=== PATIENT | female | born 1955 | race Caucasian/White ===

== ENCOUNTER 2017-01-12 06:18 | Day surgery (SDC) | payer OTHER ==
[~2017-01-12] VITALS: Ht 167.6 cm; Wt 75.0 kg
[~2017-01-12 06:18] MED LIST: IMITREX50 MG PO; KENALOG,ARISTOC15 G2 TP; LANTUS 3 M100 UNITS1 SC; LEVOTHYROXINE125 MCG PO; METFORMIN HCL1000 MG PO; METOPROLOL TART25 MG PO; MIRALAX255 GM PO; NITROSTAT0.3 MG SL; OMEPRAZOLE20 MG PO; VITAMIN B-12250 MCG PO; ZOLOFT25 MG PO
[2017-01-12 07:34] VITALS: BP 109/70
[2017-01-12 08:22] LABS: POINT-OF-CARE METER ID UU14174212; POINT-OF-CARE USER ID AHSRSCSLC11
[2017-01-12 10:03] LABS: POINT-OF-CARE METER ID UU13113675
[2017-01-12 10:35] VITALS: BP 109/66
[2017-01-12 11:28] VITALS: BP 126/65
[2017-01-12 12:10] VITALS: BP 113/67
== END 2017-01-12 12:25 | disposition home or self-care (01) ==
LOC: SDC 06:18
PROVIDERS: Internal Medicine
DX: H33.011 Retinal detachment with single break, right eye (principal); E11.3591 Type 2 diabetes mellitus with proliferative diabetic retinopathy without macular edema, right eye; K21.9 Gastro-esophageal reflux disease without esophagitis; E03.9 Hypothyroidism, unspecified; Z91.013 Allergy to seafood
CPT/HCPCS: 82948; J0690; J1100; J2250; J2405; J3010; J3300